=== PATIENT | female | born 1970 | race African-American/Black ===

== ENCOUNTER 2017-02-18 22:01 | Emergency (ER) | payer OTHER ==
[~2017-02-18] VITALS: Ht 160 cm; Wt 81.0 kg
[2017-02-18 23:53] LABS: HEMATOCRIT 36.9 % (36.0-46.0); MCH 25.9 PG (29.0-34.0); MCHC 33.9 G/DL (30.0-36.0); MCV 76.6 FL (83-99); RBC DIS.WIDTH-CV 14.7 % (11.8-14.6); RBC DIS.WIDTH-SD 40.6 % (39-53); RED BLOOD COUNT 4.82 M/uL (3.80-5.20); WHITE BLOOD COUNT 5.3 K/uL (4.1-10.2)
[2017-02-19 00:10] LABS: CHLORIDE 105 mEq/L (99-109); POTASSIUM 3.7 mEq/L (3.7-5.4); SODIUM 137 mEq/L (136-147)
[2017-02-19 00:12] LABS: GLUCOSE 95 mg/dL (70-99)
[2017-02-19 00:13] LABS: ANION GAP 11 MEQ/L (2-14)
[2017-02-19 00:14] LABS: TOTAL BILIRUBIN 0.3 mg/dL (0.0-1.0)
[2017-02-19 00:15] LABS: ALKALINE PHOSPHATASE 95 IU/L (3-129)
[2017-02-19 00:16] LABS: GFR ESTIMATE (CALCULATED) > 59 mL/min/
[2017-02-19 00:17] LABS: UREA NITROGEN (BUN) 13 mg/dL (9-23)
[2017-02-19 00:25] LABS: QUANTITATIVE HCG < 4.0 MIU/ML
[2017-02-19 01:03] LABS: MEAN PLAT.VOLUME 11.9 uM^3 (9.5-12.4); PLAT.SUFFICIENCY ADEQUATE; PLATELET COUNT 209 K/uL (156-360)
[2017-02-19 02:36] LABS: ADD MIUA? YES; BILIRUBIN NEGATIVE; BLOOD NEGATIVE; COLOR YELLOW ((YELLOW)); GLUCOSE (STRIP) NEGATIVE; KETONES NEGATIVE; LEUKOCYTES NEGATIVE; NITRITE NEGATIVE; PROTEIN (STRIP) NEGATIVE; SPECIFIC GRAVITY 1.021 (1.000-1.030); UROBILINOGEN 0.2 MG/DL (0.2-1.0)
[2017-02-19] MEDS ORDERED: NORCO 5/3251 TABLET PO (02:51)
[2017-02-19] MEDS ORDERED: FLEXERIL10 MG PO (02:52)
[2017-02-19 03:09] VITALS: BP 150/93
[2017-02-19 03:30] LABS: BACTERIA 1+ /HPF; EPITHELIAL CELLS 1+ /HPF; MUCUS 3+ /LPF; RED BLOOD CELLS 0-5 /HPF (0-5); UCUL ADDED? NO; WHITE BLOOD CELLS 0-5 /HPF (0-5)
== END 2017-02-19 03:10 | disposition home or self-care (01) ==
LOC: EME 22:01 → EXP 22:01
PROVIDERS: Physician Assistant
DX: R10.9 Unspecified abdominal pain (principal)
CPT/HCPCS: 74176; 80053; 81003; 84702; 85027; 99281; 99285